=== PATIENT | male | born 1950 | race Asian ===

== ENCOUNTER 2022-05-04 07:50 | Day surgery (SDC) | payer OTHER, MEDICAID ==
[2022-05-03 10:29] VITALS: BMI 33.3
[~2022-05-04 07:50] MED LIST: Fluorouracil 100 MG, Enoxaparin Sodium 25 MG, EPINEPHrine 0.3 MG in Ophthalmic Irrigati... IRR SCH
[2022-05-04] MEDS ORDERED: Phenylephrine 2.5% Ophth Soln 5 ML BOT ONE (08:03)
[2022-05-04] MEDS ORDERED: Cyclopentolate 1% Opth Drop 2 ML BOT ONE (08:03)
[2022-05-04] MEDS ORDERED: FENTANYL 50 MCG/ML 1 ML VIAL ONE ×2 (10:03→12:25)
[2022-05-04] MEDS ORDERED: PROPOFOL 20 ML ONE (10:03)
[2022-05-04] MEDS ORDERED: Dexamethasone 20 MG/5 ML VIAL ONE (10:11)
[2022-05-04] MEDS ORDERED: Enoxaparin Sodium 30 MG/0.3 ML SYRINGE ONE (10:11)
[2022-05-04] MEDS ORDERED: Bupivacaine 0.75% 10 ML VIAL ONE (10:11)
[2022-05-04] MEDS ORDERED: CEFAZOLIN 1 GM VIAL ONE (10:11)
[2022-05-04] MEDS ORDERED: Lidocaine 1% PF 5 ML VIAL ONE (10:11)
[2022-05-04] MEDS ORDERED: Ondansetron PF 4 MG/2 ML Vial ONE (10:11)
[2022-05-04] MEDS ORDERED: Phenylephrine 10 MG/ML VIAL ONE (10:11)
[2022-05-04] MEDS ORDERED: Indocyanine Green 25 MG/10 ML VIAL ONE (10:11)
[2022-05-04] MEDS ORDERED: Triamcinolone 40 MG/ML VIAL ONE (10:11)
[2022-05-04] MEDS ORDERED: ePHEDrine 50 MG/ML VIAL ONE (10:11)
[2022-05-04] MEDS ORDERED: Lidocaine 4% PF 5 ML AMP ONE (10:11)
[2022-05-04] MEDS ORDERED: Glycopyrrolate 0.2 MG/ML 5 ML SYRINGE ONE (10:11)
[2022-05-04] MEDS ORDERED: Famotidine/PF 20 mg/2ml Vial ONE (10:12)
== END 2022-05-04 13:58 | disposition home or self-care (01) ==
LOC: SDC 07:50
PROVIDERS: ATTEND Ophthalmology Retina Specialist
PROC: 08T53ZZ Resection of Left Vitreous, Percutaneous Approach (ICD-10-PCS; principal; 2022-05-04)
PROC: 08NF3ZZ Release Left Retina, Percutaneous Approach (ICD-10-PCS; 2022-05-04)
DX: H35.342 Macular cyst, hole, or pseudohole, left eye (principal); Z79.4 Long term (current) use of insulin; Z79.84 Long term (current) use of oral hypoglycemic drugs; Z79.899 Other long term (current) drug therapy
CPT/HCPCS: 67042; 82962; J3010; 36416; 67025; J0171; J0690; J1100; J1650; J2370; J2405; J2704; J3301; J3490; J9190; S0028